=== PATIENT | male | born 1980 | race Caucasian/White ===

== ENCOUNTER 2016-07-25 10:22 | Emergency (ER) | payer SELFPAY ==
[~2016-07-25] VITALS: Ht 182.9 cm; Wt 86.4 kg
[~2016-07-25 10:22] MED LIST: NORCO 5/3251 TABLET PO; PEN-VEE K,VEET500 MG PO
[2016-07-25 11:12] LABS: HEMATOCRIT 43.2 % (38.0-50.0); MCH 30.5 PG (29.0-34.0); MCHC 34.3 G/DL (30.0-36.0); MCV 88.9 FL (86-99); MEAN PLAT.VOLUME 10.1 uM^3 (9.0-12.4); PLATELET COUNT 187 K/uL (156-360); RBC DIS.WIDTH-SD 39.3 % (39-53); RED BLOOD COUNT 4.86 M/uL (4.00-5.50); WHITE BLOOD COUNT 11.2 K/uL (4.1-10.2)
[2016-07-25 11:26] LABS: CHLORIDE 108 mEq/L (99-109); SODIUM 141 mEq/L (136-147)
[2016-07-25 11:27] LABS: GLUCOSE 99 mg/dL (70-99)
[2016-07-25 11:29] LABS: ANION GAP 9 MEQ/L (2-14)
[2016-07-25 11:31] LABS: GFR ESTIMATE (CALCULATED) > 59 mL/min/
[2016-07-25 11:32] LABS: UREA NITROGEN (BUN) 17 mg/dL (9-23)
[2016-07-25 11:35] LABS: TROP-I INTERPRETATION NEGATIVE; TROPONIN-I < 0.01 ng/mL (0.0-0.30)
[2016-07-25] MEDS ORDERED: POTASSIUM-9999 MG PO (12:01)
[2016-07-25 12:22] VITALS: BP 138/79
== END 2016-07-25 12:23 | disposition home or self-care (01) ==
LOC: EME 10:22
DX: R07.9 Chest pain, unspecified (principal); F41.9 Anxiety disorder, unspecified; R42 Dizziness and giddiness; F17.200 Nicotine dependence, unspecified, uncomplicated
CPT/HCPCS: 71020; 80048; 84484; 85027; 93005; 99281; 99283

== ENCOUNTER 2016-07-26 11:11 | Emergency (ER) | payer SELFPAY ==
[~2016-07-26] VITALS: Ht 182.9 cm; Wt 87.1 kg
[~2016-07-26 11:11] MED LIST changes: +POTASSIUM-9999 MG PO
[2016-07-26 12:09] LABS: HEMATOCRIT 42.5 % (38.0-50.0); MCH 30.3 PG (29.0-34.0); MCHC 34.1 G/DL (30.0-36.0); MCV 88.9 FL (86-99); MEAN PLAT.VOLUME 10.3 uM^3 (9.0-12.4); PLATELET COUNT 171 K/uL (156-360); RBC DIS.WIDTH-SD 39.3 % (39-53); RED BLOOD COUNT 4.78 M/uL (4.00-5.50); WHITE BLOOD COUNT 7.3 K/uL (4.1-10.2)
[2016-07-26 12:20] LABS: CHLORIDE 110 mEq/L (99-109); POTASSIUM 4.3 mEq/L (3.7-5.4); SODIUM 141 mEq/L (136-147)
[2016-07-26 12:22] LABS: GLUCOSE 94 mg/dL (70-99)
[2016-07-26 12:23] LABS: ANION GAP 7 MEQ/L (2-14)
[2016-07-26 12:26] LABS: GFR ESTIMATE (CALCULATED) > 59 mL/min/
[2016-07-26 12:27] LABS: UREA NITROGEN (BUN) 13 mg/dL (9-23)
[2016-07-26 12:33] LABS: TROP-I INTERPRETATION NEGATIVE; TROPONIN-I < 0.01 ng/mL (0.0-0.30)
[2016-07-26 15:39] VITALS: BP 108/75
== END 2016-07-26 15:43 | disposition home or self-care (01) ==
LOC: EME 11:11
DX: R55 Syncope and collapse (principal); R07.9 Chest pain, unspecified; M54.9 Dorsalgia, unspecified; F17.200 Nicotine dependence, unspecified, uncomplicated
CPT/HCPCS: 71020; 80048; 84484; 85027; 93005; 99281; 99285; J7030